=== PATIENT | female | born 1960 | race Caucasian/White ===

== ENCOUNTER 2016-04-30 19:34 | Emergency (ER) | payer OTHER ==
[2016-04-30] MEDS ORDERED: IOPAMIDOL 370 (76%) 100 ML VIAL IV ONE (19:35)
[2016-04-30] MEDS ORDERED: ASPIRIN CHEWTAB 81 MG TABLET ONE (19:39)
[2016-04-30 19:59] LABS: ABSOLUTE NEUTROPHIL COUNT 3.3 K/mm3 (1.8-7.7); BASO # 0.1 K/mm3 (0.0-0.2); EOS # 0.3 (0.0-0.5); HEMATOCRIT 41.6 % (37.0-47.0); HEMOGLOBIN 13.2 gm/l (12.0-16.0); IMM NEUT% 0.3 % (0-1); LYMPH # 2.8 (1.0-4.8); LYMPH % 40.5 % (15-45); MEAN CELL VOLUME 87.6 fl (81.0-99.0); MEAN CORPUSCULAR HEMOGLOBIN 27.8 pg (27.0-31.0); MEAN CORPUSCULAR HGB CONC 31.7 g/dl (33.0-37.0); MEAN PLATELET VOLUME 10.7 fl (7.4-10.4); MONO # 0.4 (0.0-0.8); MONO % 5.5 % (4-12); NEUT % 47.7 % (43-75); PLATELET COUNT 225 K/mm3 (130-400); RED CELL DISTRIBUTION WIDTH 14.4 % (11.5-14.5)
[2016-04-30 20:12] LABS: ALB/GLOB RATIO 1.1 (>1.0); ALBUMIN 3.9 gm/dL (3.5-5.7); CALCIUM 9.1 mg/dL (8.6-10.3); MAGNESIUM 1.8 mg/dL (1.9-2.7)
[2016-04-30 20:14] LABS: TROPONIN I < 0.01 ng/ml (0.0-0.06)
[2016-04-30 20:18] LABS: CKMB ISOENZYME 1.2 ng/ml (0.6-6.3)
--- NOTE | 2016-04-30 21:48 | CT ---
Name: YAJAIRA SIFUENTES Exam: CT Angiogram of the chest with contrast Comparison: None Clinical History:Chest pain and elevated d-dimer Procedure: Helical CT using multidetector technique was applied to the chest during rapid intravenous administration of 80 cc Isovue-[id number]. MIP reconstructions were obtained on the CT scanner. Automated dose reduction technique was used to minimize patient radiation dose. Findings: CT angiogram of the chest (contrast enhanced): This is a low volume exam contributing to prominence of the heart. Aorta is normal caliber. There is a common trunk for the innominate artery and left common carotid artery which is a normal variant. Injection was made via the right. Limited views of thyroid gland show no suspicious abnormality. There is no suspicious axillary, mediastinal or hilar adenopathy. Large airways are clear. There is no pulmonary embolus. Lungs are clear. There is a small hiatal hernia. Structures below the diaphragm included on this exam are within normal limits. There is advanced degenerative disease of the lower thoracic spine and upper lumbar spine. Impression: 1. No pulmonary embolus 2. Small hiatal hernia 3. 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
[2016-04-30] MEDS ORDERED: MAALOX/LIDO2%VISC/SIMETHICONE 40 ML BOT ONE (22:11)
[2016-04-30] MEDS ORDERED: FAMOTIDINE 10 MG/ML 2ML VIAL ONE (22:11)
--- NOTE | 2016-05-01 07:34 | RAD ---
Exam: Two-view chest COMPARISON: None INDICATION: Chest pain. FINDINGS: PA and lateral views of the chest were obtained. Cardiac silhouette is within normal limits. Lungs are well-inflated. There is no focal airspace disease or pleural effusion. Levoconvex curvature of the thoracic spine and bridging osteophytes along the right side of the spine are appreciated. Prominent degenerative disc disease is seen at the thoracolumbar junction. IMPRESSION: No acute pulmonary process.
== END 2016-04-30 22:37 | disposition home or self-care (01) ==
LOC: ED 19:34
DX: R07.9 Chest pain, unspecified (principal); K21.9 Gastro-esophageal reflux disease without esophagitis; R06.02 Shortness of breath
CPT/HCPCS: 85379; 85025; 82550; 82553; 80053; 83735; 84484; 71020; 71275; 99284 ×2; 96374; 93005; A9270 ×2; Q9967